=== PATIENT | male | born 1945 | race Caucasian/White ===

== ENCOUNTER 2016-12-22 06:05 | Day surgery (SDC) | payer MEDICARE, OTHER ==
[~2016-12-22] VITALS: Ht 172.7 cm; Wt 72.7 kg
[~2016-12-22 06:05] MED LIST: ALBU8.5H8 IH; BUDE10.2 IH; COMBIH IH; DSSL PO; FLUT1DIS3 IH; MONT10TA21 PO; OMEP10SU2 PO; OMEP20CA4; PERCT10 PO; PRED5TAB PO; ROPI2TAB25 PO; SIMV40TA5 PO; SODIUM CHLORIDE 0.9% 1,000 ML IV ONE; TRAM50TA2 PO; ZOLP5 PO
[2016-12-22] MEDS ORDERED: LIDOCAINE HCL 2% 30 ML JELLY TP ONE (06:06)
[2016-12-22] MEDS ORDERED: BENZOCAINE 20% 50 MCG/SPRAY 57 GM TP ONE (06:06)
[2016-12-22] MEDS ORDERED: ALBUTEROL SULFATE 2.5 MG/0.5 ML NEB SOLUTION NEB ONE (06:06)
[2016-12-22] MEDS ORDERED: LIDOCAINE HCL 4% 50 ML SOLUTION TP ONE (06:06)
[2016-12-22] MEDS ORDERED: SODIUM CHLORIDE 0.9% 1,000 ML IV ONE (06:22)
[2016-12-22] MEDS ORDERED: FentaNYL CITRATE-PF 100 MCG/2 ML VIAL ONE (07:44)
[2016-12-22] MEDS ORDERED: MIDAZOLAM HCL 2 MG/2 ML VIAL ONE (07:44)
[2016-12-22] MEDS ORDERED: MethylPREDNISolone SOD SUCC 125 MG/2 ML VIAL IVP ONE (08:30)
[2016-12-22] MEDS ORDERED: MethylPREDNISolone SOD SUCC 125 MG/2 ML VIAL ONE (09:01)
[2016-12-22] MEDS ORDERED: OXYGEN THERAPY IH SCH (20:00)
== END 2016-12-22 10:05 | disposition home or self-care (01) ==
LOC: SURGERY 06:05
PROVIDERS: ATTEND Internal Medicine Critical Care Medicine
DX: J38.4 Edema of larynx (principal); B37.0 Candidal stomatitis; J39.8 Other specified diseases of upper respiratory tract; F17.200 Nicotine dependence, unspecified, uncomplicated; Z98.42 Cataract extraction status, left eye; Z98.41 Cataract extraction status, right eye; Z98.890 Other specified postprocedural states; Z86.73 Personal history of transient ischemic attack (TIA), and cerebral infarction without residual deficits
CPT/HCPCS: 31623; 31624; 87015; 87070; 87101; 87205; 87220; 88108; 88312; J2250; J2930; J3010; J7030

== ENCOUNTER 2018-06-07 07:07 | Day surgery (SDC) | payer MEDICARE, OTHER ==
[~2018-06-07] VITALS: Ht 172.7 cm; Wt 76.5 kg
[2018-06-07] MEDS ORDERED: SODIUM CHLORIDE 0.9% 1,000 ML IV ONE (07:35)
[2018-06-07] MEDS ORDERED: FentaNYL CITRATE-PF 100 MCG/2 ML VIAL ONE (08:14)
[2018-06-07] MEDS ORDERED: MIDAZOLAM HCL 2 MG/2 ML VIAL ONE (08:14)
[2018-06-07] MEDS ORDERED: MethylPREDNISolone SOD SUCC 125 MG/2 ML VIAL IVP ONE (09:00)
[2018-06-07] MEDS ORDERED: MethylPREDNISolone SOD SUCC 125 MG/2 ML VIAL ONE (09:09)
[2018-06-07] MEDS ORDERED: BENZOCAINE 20% 50 MCG/SPRAY 57 GM ONE ×2 (17:04→17:06)
[2018-06-07] MEDS ORDERED: LIDOCAINE 2% 11 ML JELLY ONE (17:04)
[2018-06-07] MEDS ORDERED: ALBUTEROL SULFATE 2.5 MG/0.5 ML NEB SOLUTION NEB ONE ×2 (17:04→17:06)
[2018-06-07] MEDS ORDERED: LIDOCAINE 4% 50 ML SOLUTION ONE (17:04)
[2018-06-07] MEDS ORDERED: LIDOCAINE 2% 30 ML JELLY ONE (17:06)
[2018-06-07] MEDS ORDERED: OXYGEN THERAPY IH SCH (20:00)
== END 2018-06-07 10:05 | disposition home or self-care (01) ==
LOC: SURGERY 07:07
PROVIDERS: ATTEND Internal Medicine Critical Care Medicine
DX: J38.4 Edema of larynx (principal); B37.0 Candidal stomatitis; J44.9 Chronic obstructive pulmonary disease, unspecified; F17.210 Nicotine dependence, cigarettes, uncomplicated; Z72.89 Other problems related to lifestyle; Z98.42 Cataract extraction status, left eye; Z98.41 Cataract extraction status, right eye; Z98.890 Other specified postprocedural states
CPT/HCPCS: 31623; 31624; 71045; 87015; 87070; 87101; 87205; 87206; 87220; 88112; 88312; J2250; J2930; J3010; J7030

== ENCOUNTER 2023-09-19 14:11 | Inpatient (IN) | payer MEDICARE, MEDICAID ==
[~2023-09-19] VITALS: Ht 175.3 cm; Wt 78.2 kg
[~2023-09-19 14:11] MED LIST changes: +DOCU50LI36 PO; -DSSL PO; +MONT-35 PO; -MONT10TA21 PO; +OXYC-490 PO; -PERCT10 PO; +SIMV-46 PO; -SIMV40TA5 PO; -SODIUM CHLORIDE 0.9% 1,000 ML IV ONE; +ZOLP-280 PO; -ZOLP5 PO
[2023-09-19] MEDS ORDERED: 0.9% SODIUM CHLORIDE 10 ML SYRINGE IVP PRN (14:30)
[2023-09-19 15:05] LABS: BASOPHILS % (AUTO) 0.4 % (0.0-2.0); EOSINOPHILS % (AUTO) 0.1 % (1.0-6.0); HEMATOCRIT 29.9 % (41-53); HEMOGLOBIN 9.8 g/dL (13.5-17.5); LYMPHOCYTES # (AUTO) 0.5 K/uL (1.0-4.8); LYMPHOCYTES % (AUTO) 6.7 % (22.0-44.0); MEAN CORPUSCULAR HEMOGLOBIN 28.4 pg (26.0-34.0); MEAN CORPUSCULAR HGB CONC 32.8 G/dL (31.0-37.0); MEAN CORPUSCULAR VOLUME 86 fL (80-100); MONOCYTES # (AUTO) 0.6 K/uL (0.1-1.0); PLATELET COUNT (AUTO) 119 K/uL (150-450); RED BLOOD CELL COUNT(AUTO) 3.46 MIL/uL (4.50-5.90); RED CELL DISTRIBUTION WIDTH 17.9 % (11.5-14.5); WHITE BLOOD COUNT (AUTO) 8.1 K/uL (4.5-11.0)
[2023-09-19 15:07] LABS: NEUTROPHILS % (AUTO) 85.8 % (40.0-70.0)
[2023-09-19] MEDS: ACETAMINOPHEN 1000 MG/ISO-OSM 100 ML IV ONE (15:14)
[2023-09-19 15:18] LABS: ANION GAP 9 mmol/L (8-16); CALCIUM, TOTAL 8.2 mg/dL (8.8-10.5); CARBON DIOXIDE 25 mmol/L (22-29); CHLORIDE 98 mmol/L (98-107); CREATININE 2.13 mg/dL (0.60-1.30); GLOMERULAR FILTR. RATE CALC 30 mL/min (>60); GLUCOSE,RANDOM 105 mg/dL (70-110); POTASSIUM 4.4 mmol/L (3.5-5.1); SODIUM SERUM 132 mmol/L (136-145); UREA NITROGEN, BLOOD 27 mg/dL (7-18)
[2023-09-19 15:24] LABS: LACTIC ACID 0.9 mmol/L (0.4-2.0)
[2023-09-19 15:25] LABS: TROPONIN I-HIGH SENSITIVITY 42 ng/L (<76)
[2023-09-19 15:27] LABS: B-TYPE NATRIURETIC PEPTIDE 201 pg/mL (0-100)
[2023-09-19 15:43] LABS: ALANINE AMINOTRANSFERASE 13 U/L (12-78); ALBUMIN 2.6 g/dL (3.4-5.0); ALKALINE PHOSPHATASE 67 U/L (46-116); ASPARTATE AMINOTRANSFERASE 28 U/L (15-37); BILIRUBIN,TOTAL 0.5 mg/dL (0.1-1.0); CREATINE KINASE, TOTAL ONLY 830 U/L (39-308); TOTAL PROTEIN, SERUM 6.7 g/dL (6.4-8.2)
[2023-09-19 15:53] LABS: COVID AG,FIA SOURCE NASAL SWAB
[2023-09-19] MEDS ORDERED: MAGNESIUM HYDROXIDE SUSPENSION 30 ML UDCUP PO PRN (16:15)
[2023-09-19] MEDS ORDERED: BISACODYL 10 MG RECTAL RECTAL SUPPOSITORY PR PRN (16:15)
[2023-09-19] MEDS ORDERED: ONDANSETRON HCL 4 MG/2 ML VIAL IVP PRN (16:15)
[2023-09-19 16:23] LABS: INFLUENZA TYPE A NEGATIVE FOR TYPE A (NEGATIVE); INFLUENZA TYPE B NEGATIVE FOR TYPE B (NEGATIVE); SARS-COV2 (COVID) ANTIGEN,FIA Negative (Negative)
[2023-09-19] MEDS: SODIUM CHLORIDE 0.9% 500 ML IV ONE (16:25)
[2023-09-19] MEDS: CefTRIAXone 1 GM/DEXTROSE 50 ML IV ONE (16:25)
[2023-09-19] MEDS: SODIUM CHLORIDE 0.9% 1,000 ML IV ONE (16:26)
[2023-09-19] MEDS: DOCUSATE SODIUM 100 MG CAPSULE PO SCH (21:00)
[2023-09-19 22:06] VITALS: BP 142/65; PULSE 64; RESP 20; TEMP 98.1
[2023-09-19 23:26] LABS: APPEARANCE,URINE HAZY (CLEAR); BILIRUBIN,URINE NEGATIVE (NEGATIVE); COLOR,URINE COLORLESS (YELLOW); GLUCOSE, URINE (UA) NEGATIVE (NEGATIVE); KETONES,URINE NEGATIVE (NEGATIVE); LEUKOCYTE ESTERASE ,URINE LARGE (NEGATIVE); NITRATE,URINE NEGATIVE (NEGATIVE); OCCULT BLOOD,URINE LARGE (NEGATIVE); PH,URINE 7.5 (5.0-8.0); PROTEIN,URINE 30-70 mg/dL (NEGATIVE); SPECIFIC GRAVITIY, URINE 1.007 (1.003-1.030); UROBILINOGEN,URINE <=1.0 mg/dL (<=1.0)
[2023-09-19 23:39] LABS: BACTERIA,URINE Many /HPF (None Seen); WBC,URINE 51-100 /HPF (0-5)
[2023-09-19 23:40] LABS: SQUAMOUS EPITHELIAL CELL,UR Few /LPF (None Seen)
[2023-09-20] MEDS: HEPARIN SODIUM,PORCINE 5,000 UNITS/ML VIAL SQ SCH
[2023-09-20 00:27] VITALS: BP 119/65; PULSE 66; RESP 18; TEMP 97.6
[2023-09-20] MEDS: ACETAMINOPHEN 325 MG TABLET PO PRN (05:37)
[2023-09-20 05:40] VITALS: BP 135/64; PULSE 71; RESP 19; TEMP 100.4
[2023-09-20 06:20] LABS: BASOPHILS % (AUTO) 0.1 % (0.0-2.0); EOSINOPHILS % (AUTO) 0.3 % (1.0-6.0); HEMATOCRIT 30.2 % (41-53); LYMPHOCYTES # (AUTO) 0.5 K/uL (1.0-4.8); LYMPHOCYTES % (AUTO) 6.7 % (22.0-44.0); MEAN CORPUSCULAR HEMOGLOBIN 28.6 pg (26.0-34.0); MEAN CORPUSCULAR HGB CONC 33.1 G/dL (31.0-37.0); MEAN CORPUSCULAR VOLUME 87 fL (80-100); MONOCYTES # (AUTO) 0.4 K/uL (0.1-1.0); MONOCYTES % (AUTO) 6.4 % (2.0-9.0); NEUTROPHILS # (AUTO) 5.9 K/uL (1.8-7.7); PLATELET COUNT (AUTO) 107 K/uL (150-450); RED CELL DISTRIBUTION WIDTH 18.1 % (11.5-14.5); WHITE BLOOD COUNT (AUTO) 6.8 K/uL (4.5-11.0)
[2023-09-20 06:22] LABS: NEUTROPHILS % (AUTO) 86.5 % (40.0-70.0)
[2023-09-20 06:33] LABS: CALCIUM, TOTAL 8.3 mg/dL (8.8-10.5); CREATININE 1.8 mg/dL (0.60-1.30); POTASSIUM 3.9 mmol/L (3.5-5.1)
[2023-09-20 08:05] VITALS: BP 138/53; PULSE 66; RESP 18; TEMP 99.5
[2023-09-20] MEDS: PANTOPRAZOLE SODIUM 40 MG DR TABLET PO SCH (08:09)
[2023-09-20 11:13] VITALS: BP 124/53; PULSE 68; RESP 18; TEMP 98.9
[2023-09-20 16:00] VITALS: BP 114/56; PULSE 69; RESP 18; TEMP 98
[2023-09-20] MEDS ORDERED: SODIUM CHLORIDE 0.9% 250 ML IV ONE (17:21)
[2023-09-20] MEDS: CefTRIAXone 1 GM/DEXTROSE 50 ML IV SCH (17:47)
[2023-09-20 20:51] VITALS: BP 131/60; PULSE 61; RESP 18; TEMP 98.3
[2023-09-21 00:34] VITALS: BP 139/64; PULSE 60; RESP 18; TEMP 98.3
[2023-09-21 04:00] VITALS: BP 157/88; PULSE 88; RESP 18; TEMP 98.1
[2023-09-21 06:18] LABS: BASOPHILS % (AUTO) 0.2 % (0.0-2.0); EOSINOPHILS % (AUTO) 0.5 % (1.0-6.0); HEMATOCRIT 29.2 % (41-53); HEMOGLOBIN 9.6 g/dL (13.5-17.5); LYMPHOCYTES # (AUTO) 0.5 K/uL (1.0-4.8); LYMPHOCYTES % (AUTO) 9.2 % (22.0-44.0); MEAN CORPUSCULAR HEMOGLOBIN 28.6 pg (26.0-34.0); MEAN CORPUSCULAR VOLUME 87 fL (80-100); MONOCYTES # (AUTO) 0.4 K/uL (0.1-1.0); MONOCYTES % (AUTO) 7.8 % (2.0-9.0); NEUTROPHILS # (AUTO) 4.4 K/uL (1.8-7.7); NEUTROPHILS % (AUTO) 82.3 % (40.0-70.0); PLATELET COUNT (AUTO) 111 K/uL (150-450); RED BLOOD CELL COUNT(AUTO) 3.36 MIL/uL (4.50-5.90); RED CELL DISTRIBUTION WIDTH 18.8 % (11.5-14.5); WHITE BLOOD COUNT (AUTO) 5.4 K/uL (4.5-11.0)
[2023-09-21 06:25] LABS: CALCIUM, TOTAL 8.1 mg/dL (8.8-10.5); CREATININE 1.61 mg/dL (0.60-1.30); POTASSIUM 3.3 mmol/L (3.5-5.1)
[2023-09-21 07:45] VITALS: BP 156/60; PULSE 56; RESP 19; TEMP 98.2
[2023-09-21 10:49] VITALS: BP 131/62; PULSE 60; RESP 18; TEMP 98.2
[2023-09-21] MEDS: POTASSIUM CHLORIDE 10% 40 MEQ/30 ML LIQUID UDCUP PO ONE (11:38)
[2023-09-21] MEDS: *CLINICAL-LEVOFLOXACIN IVPB DOSING CLINICAL ONE (13:34)
[2023-09-21] MEDS ORDERED: SODIUM CHLORIDE 0.9% 250 ML IV ONE (14:45)
[2023-09-21] MEDS: LEVOFLOXACIN 750 MG/D5% WATER 150 ML IV SCH (15:30)
[2023-09-21 16:06] VITALS: BP 140/80; PULSE 59; RESP 18; TEMP 97.9
[2023-09-21] MEDS: DAPTOMYCIN 500 MG in SODIUM CHLORIDE 0.9% 50 ML IV SCH (16:30)
[2023-09-21] MEDS: MORPHINE SULFATE 2 MG/ML SYRINGE IVP PRN (20:24)
[2023-09-21 20:32] VITALS: BP 148/64; PULSE 62; RESP 18; TEMP 97.9
[2023-09-22 06:03] VITALS: BP 142/64; PULSE 61; RESP 19; TEMP 98.1
[2023-09-22 07:06] LABS: BASOPHILS % (AUTO) 0.4 % (0.0-2.0); EOSINOPHILS % (AUTO) 0.4 % (1.0-6.0); HEMATOCRIT 30.2 % (41-53); HEMOGLOBIN 9.9 g/dL (13.5-17.5); LYMPHOCYTES # (AUTO) 0.5 K/uL (1.0-4.8); LYMPHOCYTES % (AUTO) 11.9 % (22.0-44.0); MEAN CORPUSCULAR HEMOGLOBIN 28.2 pg (26.0-34.0); MEAN CORPUSCULAR HGB CONC 32.7 G/dL (31.0-37.0); MEAN CORPUSCULAR VOLUME 86 fL (80-100); MONOCYTES # (AUTO) 0.4 K/uL (0.1-1.0); MONOCYTES % (AUTO) 8.4 % (2.0-9.0); NEUTROPHILS # (AUTO) 3.3 K/uL (1.8-7.7); NEUTROPHILS % (AUTO) 78.9 % (40.0-70.0); PLATELET COUNT (AUTO) 116 K/uL (150-450); WHITE BLOOD COUNT (AUTO) 4.2 K/uL (4.5-11.0)
[2023-09-22 07:13] LABS: CALCIUM, TOTAL 8.2 mg/dL (8.8-10.5); CREATININE 1.5 mg/dL (0.60-1.30)
[2023-09-22 08:14] VITALS: BP 148/76; PULSE 66; RESP 19; TEMP 98.2
[2023-09-22] MEDS: *CLINICAL-CEFEPIME DOSING CLINICAL ONE (12:12)
[2023-09-22] MEDS: CEFEPIME HCL 1 GM in DEXTROSE 5%-WATER 50 ML IV SCH (13:52)
[2023-09-22 17:07] VITALS: BP 149/61; PULSE 59; RESP 19; TEMP 98.2
[2023-09-22 19:37] VITALS: BP 149/59; PULSE 55; RESP 18; TEMP 98.1
[2023-09-22] MEDS: ZOLPIDEM TARTRATE 5 MG TABLET PO PRN (20:58)
[2023-09-23 04:55] VITALS: BP 156/85; PULSE 65; RESP 20; TEMP 98.2
[2023-09-23 08:30] VITALS: RESP 19
[2023-09-23 16:00] VITALS: RESP 20
[2023-09-23 20:08] VITALS: BP 145/58; PULSE 60; RESP 18; TEMP 98.3
[2023-09-23] MEDS: MELATONIN 5 MG TABLET PO ONE (23:33)
[2023-09-24 05:29] VITALS: BP 136/75; PULSE 60; RESP 18; TEMP 97.8
[2023-09-24 08:42] VITALS: BP 142/63; PULSE 54; RESP 20; TEMP 98
[2023-09-24] MEDS: HYDROCODONE/ACETAMINOPHEN 5-325 MG TABLET PO PRN (10:12)
[2023-09-24 10:52] LABS: CALCIUM, TOTAL 8.6 mg/dL (8.8-10.5); CREATININE 1.75 mg/dL (0.60-1.30); POTASSIUM 4.1 mmol/L (3.5-5.1)
[2023-09-24] MEDS ORDERED: PANT-31 PO (11:42)
[2023-09-24] MEDS ORDERED: ACET-2247 PO (14:53)
[2023-09-24] MEDS ORDERED: LEVO750P7 IV (14:53)
[2023-09-24] MEDS ORDERED: BISA10SU11 PR (14:55)
== END 2023-09-24 16:26 | DRG 557 ==
LOC: EMS 14:11 → EDH 16:29 → 5S 21:40 → 4E 09-21 14:30
PROVIDERS: ADMIT Internal Medicine; ATTEND Internal Medicine
DX: M62.82 Rhabdomyolysis (principal); G93.41 Metabolic encephalopathy; N17.0 Acute kidney failure with tubular necrosis; N39.0 Urinary tract infection, site not specified; E44.0 Moderate protein-calorie malnutrition; R78.81 Bacteremia; I50.32 Chronic diastolic (congestive) heart failure; I69.354 Hemiplegia and hemiparesis following cerebral infarction affecting left non-dominant side; I13.0 Hypertensive heart and chronic kidney disease with heart failure and stage 1 through stage 4 chronic kidney disease, or unspecified chronic kidney disease; I73.9 Peripheral vascular disease, unspecified; B18.2 Chronic viral hepatitis C; E87.6 Hypokalemia; F32.A Depression, unspecified; K21.9 Gastro-esophageal reflux disease without esophagitis; N40.0 Benign prostatic hyperplasia without lower urinary tract symptoms; Z66 Do not resuscitate; E78.00 Pure hypercholesterolemia, unspecified; I25.10 Atherosclerotic heart disease of native coronary artery without angina pectoris; I48.91 Unspecified atrial fibrillation; Z20.822 Contact with and (suspected) exposure to COVID-19; J44.9 Chronic obstructive pulmonary disease, unspecified; M17.11 Unilateral primary osteoarthritis, right knee; N18.9 Chronic kidney disease, unspecified; Z92.3 Personal history of irradiation; Z85.118 Personal history of other malignant neoplasm of bronchus and lung; Z87.440 Personal history of urinary (tract) infections; Z87.442 Personal history of urinary calculi; Z68.25 Body mass index [BMI] 25.0-25.9, adult
CPT/HCPCS: 71045; 76770; 80048; 80053; 81001; 82550; 83605; 83880; 84145; 84484; 85025; 87040; 87077; 87081; 87086; 87186; 87205; 87804; 93005; 93306; 97163; 97166; 97530; 97535; 99285; G0378; J0131; J0692; J0696; J0878; J1644; J1956; J2270; J7040; J7050; J7060; 36415-L1; 36415-TC